=== PATIENT | male | born 1960 | race Caucasian/White ===

== ENCOUNTER 2017-06-23 19:37 | Inpatient (IN) | payer OTHER ==
[~2017-06-23] VITALS: Ht 170.2 cm; Wt 106.9 kg
[2017-06-23] VITALS (17 sets, daily range): BP systolic 118–138; BP diastolic 89–95; PULSE 97–115; TEMP 98.2; O2SAT 92–97
[2017-06-23] MEDS ORDERED: PROAIR HFA0.09 MG/AC IH (19:45)
[2017-06-23] MEDS ORDERED: IPRATROPIUM BROM3 M1 IH (19:46)
[2017-06-23] MEDS ORDERED: COMBIRESP IH (19:47)
[2017-06-23 20:00] LABS: ARTERIAL BLD GAS TCO2 CT 32.4; ARTERIAL BLOOD GAS BASE EXCESS 1.2 (-2-2); ARTERIAL BLOOD GAS HCO3 30.4 meq/L (22-26); ARTERIAL BLOOD GAS PO2 79.8 mmHg (80-100); ARTERIAL BLOOD GAS pH 7.28 (7.35-7.45)
[2017-06-23 20:01] LABS: ARTERIAL BLOOD GAS PCO2 66.1 mmHg (35-45)
[2017-06-23 20:55] LABS: TROPONIN-I < 0.012 ng/mL (0.000-0.034)
[2017-06-23 21:13] LABS: TSH w REFLEX 0.386 uIU/mL (0.465-4.680)
[2017-06-23 21:32] LABS: ARTERIAL BLD GAS O2 SATURATION 93.3 % (92-100); ARTERIAL BLD GAS TCO2 CT 34.9; ARTERIAL BLOOD GAS BASE EXCESS 3.9 (-2-2); ARTERIAL BLOOD GAS HCO3 32.9 meq/L (22-26); ARTERIAL BLOOD GAS PO2 73.3 mmHg (80-100); ARTERIAL BLOOD GAS pH 7.31 (7.35-7.45)
[2017-06-23 21:33] LABS: ARTERIAL BLOOD GAS PCO2 66.6 mmHg (35-45)
[2017-06-24] VITALS (665 sets, daily range): BP systolic 118–142; BP diastolic 83–97; PULSE 68–99; TEMP 98–98.9; O2SAT 79–100
[2017-06-24 00:16] LABS: ARTERIAL BLD GAS O2 SATURATION 92.7 % (92-100); ARTERIAL BLD GAS TCO2 CT 32.9; ARTERIAL BLOOD GAS BASE EXCESS 0.7 (-2-2); ARTERIAL BLOOD GAS HCO3 30.7 meq/L (22-26); ARTERIAL BLOOD GAS PO2 74.8 mmHg (80-100); ARTERIAL BLOOD GAS pH 7.25 (7.35-7.45)
[2017-06-24 04:31] LABS: ARTERIAL BLD GAS O2 SATURATION 92.9 % (92-100); ARTERIAL BLD GAS TCO2 CT 35.2; ARTERIAL BLOOD GAS HCO3 32.9 meq/L (22-26); ARTERIAL BLOOD GAS PO2 73.6 mmHg (80-100); ARTERIAL BLOOD GAS pH 7.27 (7.35-7.45)
[2017-06-24 06:17] LABS: GRAN % 82.4 % (42.2-75.2); HEMOGLOBIN 16.9 g/dl (13.5-18.0); LYMPH # 0.3 (1.2-3.4); LYMPH % 13.9 % (20.0-51.0); MEAN CELL VOLUME 95 fl (80.0-100.0); MEAN CORPUSCULAR HEMOGLOBIN 31 pg (27.0-31.0); MEAN CORPUSCULAR HGB CONC 32 g/dl (33.0-37.0); MEAN PLATELET VOLUME 10.3 fl (7.4-10.4); MONO # 0.1 (0.1-0.6); MONO % 2.9 % (1.7-9.3); PLATELET COUNT 137 K/mm3 (130-400); RED BLOOD COUNT 5.54 M/mm3 (4.20-5.60); REDCELL DISTRIBUTION WIDTH-CV 13.5 % (11.5-14.5)
[2017-06-24 06:25] LABS: HEMATOCRIT 52.7 % (42.0-52.0)
[2017-06-24 06:36] LABS: ALBUMIN 4.1 gm/dL (3.5-5.0); BILIRUBIN,TOTAL 0.5 mg/dL (0.0-1.0); CALCIUM 8.1 mg/dL (8.4-10.2); CREATININE, serum 0.79 mg/dL (0.66-1.25); POTASSIUM 4.9 mmol/L (3.4-5.0); TOTAL PROTEIN 7.2 gm/dL (6.4-8.2)
[2017-06-24 06:41] LABS: PH 5 (5-8); URINE APPEARANCE Clear; URINE BILIRUBIN Negative (NEGATIVE); URINE BLOOD 1+ (NEGATIVE); URINE COLOR Yellow; URINE GLUCOSE Negative (NEGATIVE); URINE KETONE Negative (NEGATIVE); URINE LEUKOCYTE ESTERASE Negative (NEGATIVE); URINE NITRATE Negative (NEGATIVE); URINE PROTEIN(semi-quant) 2+ (NEGATIVE); URINE UROBILINOGEN Negative (NEGATIVE)
[2017-06-24 06:42] LABS: SQUAMOUS EPITHELIAL 0-2 /hpf
[2017-06-24 06:45] LABS: URINE TRIPLE PHOSPHATE CRYSTAL Present /hpf
[2017-06-24 06:56] LABS: COLLECTION METHOD CLEAN CATCH
[2017-06-24 14:29] LABS: ARTERIAL BLD GAS O2 SATURATION 93.1 % (92-100); ARTERIAL BLD GAS TCO2 CT 34.6; ARTERIAL BLOOD GAS BASE EXCESS 3.8 (-2-2); ARTERIAL BLOOD GAS HCO3 32.6 meq/L (22-26); ARTERIAL BLOOD GAS PO2 71.4 mmHg (80-100); ARTERIAL BLOOD GAS pH 7.31 (7.35-7.45)
[2017-06-24 14:30] LABS: ARTERIAL BLOOD GAS PCO2 65.7 mmHg (35-45)
[2017-06-25] VITALS (198 sets, daily range): BP systolic 98–138; BP diastolic 51–92; PULSE 68–142; TEMP 97.4–98.7; O2SAT 86–100
[2017-06-25 05:14] LABS: ARTERIAL BLD GAS O2 SATURATION 93.5 % (92-100); ARTERIAL BLD GAS TCO2 CT 30.6; ARTERIAL BLOOD GAS BASE EXCESS 1.8 (-2-2); ARTERIAL BLOOD GAS HCO3 28.9 meq/L (22-26); ARTERIAL BLOOD GAS PCO2 54.5 mmHg (35-45); ARTERIAL BLOOD GAS PO2 71.5 mmHg (80-100); ARTERIAL BLOOD GAS pH 7.34 (7.35-7.45)
[2017-06-25 05:42] LABS: HEMATOCRIT 49.5 % (42.0-52.0); MEAN CELL VOLUME 95 fl (80.0-100.0); MEAN CORPUSCULAR HEMOGLOBIN 31 pg (27.0-31.0); MEAN CORPUSCULAR HGB CONC 32 g/dl (33.0-37.0); MEAN PLATELET VOLUME 10.3 fl (7.4-10.4); PLATELET COUNT 150 K/mm3 (130-400); RED BLOOD COUNT 5.23 M/mm3 (4.20-5.60); REDCELL DISTRIBUTION WIDTH-CV 13.2 % (11.5-14.5)
[2017-06-25 05:55] LABS: ALBUMIN 3.9 gm/dL (3.5-5.0); BILIRUBIN,TOTAL 0.4 mg/dL (0.0-1.0); CALCIUM 8.3 mg/dL (8.4-10.2); CREATININE, serum 0.73 mg/dL (0.66-1.25); POTASSIUM 4.4 mmol/L (3.4-5.0); TOTAL PROTEIN 6.9 gm/dL (6.4-8.2)
[2017-06-25 06:04] LABS: BAND 51 % (0-10); NEUTROPHILS 34 % (42.0-75.2); PLATELET ESTIMATE NORMAL (NORMAL)
[2017-06-25 06:05] LABS: LYMPHOCYTE 9 % (20.0-51.0)
[2017-06-26] VITALS (369 sets, daily range): BP systolic 122–141; BP diastolic 69–84; PULSE 68–94; TEMP 97–98.4; O2SAT 83–100
[2017-06-27] VITALS (378 sets, daily range): BP systolic 123–150; BP diastolic 64–81; PULSE 61–107; TEMP 36.7; O2SAT 83–100
[2017-06-27 06:12] LABS: HEMATOCRIT 51.7 % (42.0-52.0); MEAN CELL VOLUME 96 fl (80.0-100.0); MEAN CORPUSCULAR HEMOGLOBIN 30 pg (27.0-31.0); MEAN CORPUSCULAR HGB CONC 31 g/dl (33.0-37.0); MEAN PLATELET VOLUME 10.2 fl (7.4-10.4); PLATELET COUNT 197 K/mm3 (130-400); REDCELL DISTRIBUTION WIDTH-CV 13.6 % (11.5-14.5)
[2017-06-27 06:26] LABS: ALBUMIN 3.8 gm/dL (3.5-5.0); BILIRUBIN,TOTAL 0.4 mg/dL (0.0-1.0); CALCIUM 8.2 mg/dL (8.4-10.2); CREATININE, serum 0.69 mg/dL (0.66-1.25); POTASSIUM 4.2 mmol/L (3.4-5.0); TOTAL PROTEIN 6.7 gm/dL (6.4-8.2)
[2017-06-27 08:50] LABS: BAND 13 % (0-10); LYMPHOCYTE 7 % (20.0-51.0); NEUTROPHILS 80 % (42.0-75.2); PLATELET ESTIMATE NORMAL (NORMAL)
[2017-06-27 08:51] LABS: HYPOCHROMIA 1+; OVALOCYTES 1+
[2017-06-28] VITALS (9 sets, daily range): BP systolic 123–153; BP diastolic 69–88; PULSE 89–109; TEMP 97.6–98.5
[2017-06-28 11:15] LABS: INR 1.2 (0.8-3.0); PROTHROMBIN TIME 13.6 SECONDS (9.7-12.8)
[2017-06-28 11:43] LABS: PARTIAL THROMBOPLASTIN TIME 26.6 SECONDS (26.0-37.0)
[2017-06-29 02:39] VITALS: BP 143/79; PULSE 91; TEMP 97.9
[2017-06-29 04:57] VITALS: BP 132/70; PULSE 98; TEMP 97.8
[2017-06-29 05:36] LABS: BASO % 0.1 % (0.0-2.0); EOS % 0.1 % (0-4.0); GRAN # 8.8 (1.4-6.5); GRAN % 91.3 % (42.2-75.2); HEMATOCRIT 49.6 % (42.0-52.0); HEMOGLOBIN 15.8 g/dl (13.5-18.0); LYMPH # 0.3 (1.2-3.4); LYMPH % 2.6 % (20.0-51.0); MEAN CELL VOLUME 96 fl (80.0-100.0); MEAN CORPUSCULAR HEMOGLOBIN 31 pg (27.0-31.0); MEAN CORPUSCULAR HGB CONC 32 g/dl (33.0-37.0); MEAN PLATELET VOLUME 9.4 fl (7.4-10.4); MONO # 0.5 (0.1-0.6); MONO % 5.4 % (1.7-9.3); PLATELET COUNT 225 K/mm3 (130-400); RED BLOOD COUNT 5.18 M/mm3 (4.20-5.60); REDCELL DISTRIBUTION WIDTH-CV 13.5 % (11.5-14.5)
[2017-06-29 05:47] LABS: ANION GAP 4 mmol/L (7-16); BLOOD UREA NITROGEN 26 mg/dL (9-20); CALCIUM 7.8 mg/dL (8.4-10.2); CARBON DIOXIDE 37 mmol/L (22-30); CHLORIDE 96 mmol/L (98-107); CREATININE, serum 0.66 mg/dL (0.66-1.25); GLUCOSE 146 mg/dL (74-106); SODIUM 137 mmol/L (137-145)
[2017-06-29 05:59] VITALS: BP 141/89; PULSE 101; TEMP 98.2
[2017-06-29 05:59] LABS: TROPONIN-I < 0.012 ng/mL (0.000-0.034)
[2017-06-29 08:14] VITALS: BP 147/81; PULSE 92; TEMP 97.9
[2017-06-29 10:34] VITALS: BP 150/88; PULSE 104; TEMP 98.4
[2017-06-29] MEDS ORDERED: DIGITEK0.25 MG PO (11:14)
[2017-06-29] MEDS ORDERED: ELIQUIS 5MG PO (11:14)
[2017-06-29] MEDS ORDERED: CARDIZEM 60MG T60 MG PO (11:15)
[2017-06-29] MEDS ORDERED: MEDROL 4MG DOSPA4 MG PO (11:16)
== END 2017-06-29 16:02 | disposition home or self-care (01) | DRG 189 ==
LOC: IMCU 19:37 → ICU 19:58 → MEDICAL 06-25 12:30 → ICU 06-25 23:57 → MEDICAL 06-27 11:39
PROVIDERS: Anesthesiology Critical Care Medicine; Family Medicine; Internal Medicine Pulmonary Disease; Nurse Practitioner Family; Physician Assistant
PROC: 02HV33Z Insertion of Infusion Device into Superior Vena Cava, Percutaneous Approach (ICD-10-PCS; principal; 2017-06-24)
DX: J96.01 Acute respiratory failure with hypoxia (principal); J44.1 Chronic obstructive pulmonary disease with (acute) exacerbation; I48.92 Unspecified atrial flutter; J96.02 Acute respiratory failure with hypercapnia; I48.91 Unspecified atrial fibrillation; J10.1 Influenza due to other identified influenza virus with other respiratory manifestations; Z87.891 Personal history of nicotine dependence
CPT/HCPCS: 99223-AI; 99232-AI; 99233-AI; 99239; C1751; C9113; J0692; J1160; J1644; J1650; J1956; J2060; J2930; J7050; J7512; Q9967

== ENCOUNTER → 2017-07-09 | Outpatient (CLI) | payer OTHER ==
[~2017-07-09] MED LIST: CARDIZEM 60MG T60 MG PO; COMBIRESP IH; DIGITEK0.25 MG PO; ELIQUIS 5MG PO; IPRATROPIUM BROM3 M1 IH; MEDROL 4MG DOSPA4 MG PO; PROAIR HFA0.09 MG/AC IH
[2017-07-09 14:45] LABS: ARTERIAL BLD GAS O2 SATURATION 92.8 % (92-100); ARTERIAL BLD GAS TCO2 CT 29.5; ARTERIAL BLOOD GAS BASE EXCESS 2.3 (-2-2); ARTERIAL BLOOD GAS PCO2 46.7 mmHg (35-45); ARTERIAL BLOOD GAS PO2 66.2 mmHg (80-100)
== END ==
LOC: COL.PUL 14:23
PROVIDERS: Internal Medicine Pulmonary Disease
DX: J96.01 Acute respiratory failure with hypoxia (principal)

== ENCOUNTER 2017-07-22 05:53 | Day surgery (SDC) | payer OTHER ==
[~2017-07-22] VITALS: Ht 170.2 cm; Wt 103.6 kg
[2017-07-22] MEDS ORDERED: CARDIZEM 60MG T60 MG PO (08:07)
[2017-07-22] MEDS ORDERED: DIGITEK0.25 MG PO (08:08)
[2017-07-22] MEDS ORDERED: ELIQUIS 5MG PO (08:08)
[2017-07-22] MEDS ORDERED: DALIRESP500 MCG PO (08:10)
[2017-07-22] MEDS ORDERED: ATROVENT INHALE14 GM IH (08:10)
[2017-07-22 08:12] VITALS: BP 127/81; PULSE 114; TEMP 98.5
[2017-07-22 08:24] LABS: HEMATOCRIT 48.6 % (42.0-52.0); HEMOGLOBIN 15.8 g/dl (13.5-18.0); MEAN CELL VOLUME 93 fl (80.0-100.0); MEAN CORPUSCULAR HEMOGLOBIN 30 pg (27.0-31.0); MEAN CORPUSCULAR HGB CONC 33 g/dl (33.0-37.0); MEAN PLATELET VOLUME 8.9 fl (7.4-10.4); PLATELET COUNT 375 K/mm3 (130-400); RED BLOOD COUNT 5.25 M/mm3 (4.20-5.60); REDCELL DISTRIBUTION WIDTH-CV 12.6 % (11.5-14.5)
[2017-07-22 08:26] LABS: INR 1.5 (0.8-3.0)
[2017-07-22 08:31] LABS: CREATININE, serum 0.77 mg/dL (0.66-1.25)
[2017-07-22 10:00] VITALS: BP 125/78; PULSE 92
[2017-07-22 10:15] VITALS: BP 119/79; PULSE 101
[2017-07-22 10:30] VITALS: BP 123/81; PULSE 97
[2017-07-22 10:45] VITALS: BP 111/55; PULSE 105
== END 2017-07-22 13:27 | disposition home or self-care (01) ==
LOC: COL.CAR 05:53
PROVIDERS: Internal Medicine Interventional Cardiology
DX: I48.0 Paroxysmal atrial fibrillation (principal); I08.1 Rheumatic disorders of both mitral and tricuspid valves; J44.1 Chronic obstructive pulmonary disease with (acute) exacerbation; E66.9 Obesity, unspecified; Z68.35 Body mass index [BMI] 35.0-35.9, adult; Z79.01 Long term (current) use of anticoagulants; Z88.0 Allergy status to penicillin
CPT/HCPCS: G9654; J0282; J0330; J2704

== ENCOUNTER 2019-02-20 08:55 | Day surgery (SDC) | payer OTHER ==
[~2019-02-20] VITALS: Ht 170.2 cm; Wt 109.7 kg
[~2019-02-20 08:55] MED LIST changes: +ATROVENT INHALE14 GM IH; +CARDIZEM LA180 MG PO; +CORDARONE200 MG/TAB PO; +DALIRESP500 MCG PO; +TRELEGY ELLIPT1 EACH IH
[2019-02-20] MEDS ORDERED: IPRATROPIUM BROM3 M1 IH (09:25)
[2019-02-20] MEDS ORDERED: TRELEGY ELLIPT1 EACH IH (09:26)
[2019-02-20] MEDS ORDERED: SINGULAIR 110 MG/TAB PO (09:29)
[2019-02-20] MEDS ORDERED: THEO-24 30300 MG/CAP PO (09:30)
[2019-02-20] MEDS ORDERED: ASPIRIN E.C. 8181 MG PO (09:30)
[2019-02-20] MEDS ORDERED: TRIAMCINOLONE A15 GM TP (09:32)
[2019-02-20 09:40] VITALS: BP 137/94; PULSE 71; TEMP 98.2
[2019-02-20 09:42] LABS: BASO # 0.1 (0.0-0.2); BASO % 0.7 % (0.0-2.0); EOS # 0.1 (0.0-0.7); GRAN # 4.9 (1.4-6.5); GRAN % 68.1 % (42.2-75.2); HEMATOCRIT 47.9 % (42.0-52.0); HEMOGLOBIN 15.5 g/dl (13.5-18.0); LYMPH # 1.7 (1.2-3.4); LYMPH % 23.1 % (20.0-51.0); MEAN CELL VOLUME 94 fl (80.0-100.0); MEAN CORPUSCULAR HEMOGLOBIN 30 pg (27.0-31.0); MEAN CORPUSCULAR HGB CONC 32 g/dl (33.0-37.0); MEAN PLATELET VOLUME 8.9 fl (7.4-10.4); MONO # 0.5 (0.1-0.6); MONO % 6.8 % (1.7-9.3); PLATELET COUNT 318 K/mm3 (130-400); RED BLOOD COUNT 5.12 M/mm3 (4.20-5.60); REDCELL DISTRIBUTION WIDTH-CV 13.2 % (11.5-14.5)
[2019-02-20 09:47] LABS: INR 1.4 (0.8-3.0); PROTHROMBIN TIME 16.1 SECONDS (9.7-12.8)
[2019-02-20 09:49] LABS: PARTIAL THROMBOPLASTIN TIME 37.1 SECONDS (26.0-37.0)
[2019-02-20 09:56] LABS: CALCIUM 8.8 mg/dL (8.4-10.2); CREATININE, serum 0.99 (0.66-1.25); MAGNESIUM 2.1 mg/dL (1.6-2.3); POTASSIUM 4.1 mmol/L (3.4-5.0)
[2019-02-20 10:01] VITALS: BP 135/95; PULSE 71
[2019-02-20 10:25] VITALS: BP 109/90; PULSE 82
[2019-02-20 10:26] LABS: THYROID STIMULATING HORMONE 6.54 uIU/mL (0.465-4.680)
[2019-02-20 10:40] VITALS: BP 128/85; PULSE 79
[2019-02-20 10:55] VITALS: BP 127/87; PULSE 75
[2019-02-20 11:10] VITALS: BP 137/88; PULSE 76
--- NOTE | 2019-02-20 11:30 | NUR ---
Pt has been doing well after cardioversion, 2nd EKG was obtained, pt has remained awake and alert with reg and unlabored resps. pt was able to drink water with no problem. was ambulatory in room with steady gait. iv was dc'd, cath intact, dressing applied. pt was escorted to exit via wheelchair after dc and follow up instructions were reviewed. pt receied written copies, and denied any questions.
== END 2019-02-20 12:08 | disposition home or self-care (01) ==
LOC: COL.CAR 08:55
PROVIDERS: Internal Medicine Cardiovascular Disease
DX: I48.0 Paroxysmal atrial fibrillation (principal); I10 Essential (primary) hypertension; G47.33 Obstructive sleep apnea (adult) (pediatric); J44.9 Chronic obstructive pulmonary disease, unspecified; I27.20 Pulmonary hypertension, unspecified; I34.0 Nonrheumatic mitral (valve) insufficiency; Z88.0 Allergy status to penicillin; Z79.899 Other long term (current) drug therapy; Z79.82 Long term (current) use of aspirin; Z87.891 Personal history of nicotine dependence; Z80.9 Family history of malignant neoplasm, unspecified; Z82.49 Family history of ischemic heart disease and other diseases of the circulatory system; Z83.6 Family history of other diseases of the respiratory system; E78.2 Mixed hyperlipidemia
CPT/HCPCS: J2704